=== PATIENT | male | born 1970 | race Two or more races ===

== ENCOUNTER 2023-01-04 16:51 | Emergency (ER) | payer MEDICAID, OTHER ==
[~2023-01-04] VITALS: Ht 175.3 cm; Wt 76.4 kg
[2023-01-04 18:08] VITALS: BP 146/104; PULSE 120
[2023-01-04 18:30] VITALS: RESP 18; O2SAT 95
[2023-01-04] MEDS ORDERED: IPRATROPIUM BROM 0.5 MG/2.5ML INH SOL NEB ONE (18:30)
[2023-01-04] MEDS ORDERED: DexAMETHasone SOD PHOS 4 MG/1ML SDV INJ IM ONE (18:30)
[2023-01-04] MEDS ORDERED: ALBUTEROL MEDNEB 2.5 mg/3ml NEB NEB ONE (18:30)
[2023-01-04] MEDS ORDERED: DexAMETHasone SOD PHOS 10MG/1ML VIAL INJ IM ONE (19:15)
== END 2023-01-04 23:24 | disposition left against medical advice (07) ==
LOC: ER 16:51
DX: R06.02 Shortness of breath (principal); R06.2 Wheezing; Z53.21 Procedure and treatment not carried out due to patient leaving prior to being seen by health care provider
CPT/HCPCS: 94640; 99281; J7644